=== PATIENT | female | born 1975 | race Caucasian/White ===

== ENCOUNTER 2017-02-02 07:24 | Day surgery (SDC) | payer BC | END 2017-02-02 09:30 | disposition home or self-care (01) | LOC: SSS 07:24 → EDSTATUS 08:30 → SSS 08:30 → RAD.S 08:30 → SSS 09:30 | DX: N63 Unspecified lump in breast (principal); Z53.9 Procedure and treatment not carried out, unspecified reason; F17.210 Nicotine dependence, cigarettes, uncomplicated; Z79.899 Other long term (current) drug therapy; Z88.1 Allergy status to other antibiotic agents; Z80.3 Family history of malignant neoplasm of breast ==